=== PATIENT | male | born 1940 | race Caucasian/White ===

== ENCOUNTER 2018-05-09 02:31 | Emergency (ER) | payer MEDICARE, SELFPAY ==
[2018-05-09] VITALS (12 sets, daily range): BP systolic 106–120; BP diastolic 64–87; PULSE 97–110; RESP 15–20; TEMP 36.7; O2SAT 98–100; BMI 19.5
[2018-05-09 02:45] LABS: Bedside Glucose 146 mg/dL (70-110)
--- NOTE | 2018-05-09 02:48 | EKG12_ITS ---
Test Reason : ALT LOC Blood Pressure : / mmHG Vent. Rate : 105 BPM Atrial Rate : 105 BPM P-R Int : 240 ms QRS Dur : 102 ms QT Int : 356 ms P-R-T Axes : 081 014 110 degrees QTc Int : 470 ms Sinus tachycardia with 1st degree A-V block Possible Left atrial enlargement ST & T wave abnormality, consider lateral ischemia Abnormal ECG Confirmed by SANDRO CHANEL, KELSI ([id number]), purchasing expeditor GREYSON REGALADO ([id number]) on 05/12/2018 1:50:58 PM Referred By: MARJORIE Confirmed By:KELSI JO MD
--- NOTE | 2018-05-09 02:48 | CT_ITS ---
STUDY: CT BRAIN WITHOUT CONTRAST REASON FOR EXAM: Male, 77 years old. Altered mental status RADIATION DOSAGE (If Supplied By Facility): CTDIvol = ( 20.80 ) mGy, DLP = ( 360.87 ) mGycm TECHNIQUE: Transaxial CT imaging of the brain was performed without administration of intravenous contrast material. Individualized dose optimization techniques were used for this CT. COMPARISON: No relevant priors. FINDINGS: Normal soft tissue structures. Normal calvarium. There is moderate cerebral atrophy with widening of the extra-axial spaces and ventricular dilatation. There are areas of decreased attenuation within the white matter tracts of the supratentorial brain, consistent with microvascular disease changes. Encephalomalacia bilateral frontal lobes. Valuations the posterior fossa is limited by artifact. There is dilatation of a segment of the body of the right lateral ventricle. Encephalomalacia within the right high parietal convexity. There is no intracranial hemorrhage. There are no findings of an acute territorial ischemic infarction. Paranasal sinus disease. Left maxillary sinus mucus retention cyst versus polyp. Carotid and vertebral artery calcifications. CT/Brain/Head without Contrast IMPRESSION: Evaluation of posterior fossa is limited by artifact. Chronic involutional and white matter changes present. Evidence of prior infarcts. No acute territorial infarct identified. No intracranial hemorrhage is seen. If patient's symptomology persists or there is continuing clinical concern MRI or follow-up CT scan can be performed. Electronically Signed: Franklyn Nicholas, at 4:20 EDT Tel , Service support ,
--- NOTE | 2018-05-09 02:55 | ED.DCSUM_ITS ---
- ER Visit Summary Date of Service: 05/09/18 Chief Complaint: Altered mental status History of Present Illness: The patient is a 77 M who presents as a possible stroke. He was last seen normal at about 9 PM by his . He had gotten up to go to the bathroom and did not come back so she went to check on him. He was found sitting on the commode with his pants pulled part of the way back up but would not respond any questions and has been nonverbal. EMS was called and noted right facial droop. denies any recent illness such as fevers complaining of pain vomiting diarrhea difficulty breathing. She does note that he has been noncompliant with his medications. He has a history of coronary dis ease, prior MA, paroxysmal atrial flutter, diabetes, hypertension, hyperlipidemia. He is not on any anticoagulation. Physical Examination: Afebrile vitals normal No distress Patient alert with eyes open and will follow some commands after repeated questioning he nods to some questions such as if his name is Mr. Lundberg he nods yes Heart regular rate Lungs are clear Abdomen soft No evidence of trauma I do not see lacerations contusions abrasions hematomas NIH stroke scale is 10, although difficult to accurately obtain as he is nonverbal and does not cooperate with all request actions LOC = 1 Questions = 2 Tasks = 1 (squeezes hand, would not close eyes) Facial palsy = 1 (asymmetry of nasolabial fold) Language/aphasia = 3 (mute) Dysrthria = 2 (mute) Patient does not appear to have any weakness. Although he would not hold his arms or legs up for the requested count when his limbs are pulled away is good strength and does not appear to have any focal weakness. Test Results: The mid rate of 105. There is ST depression and T wave inversions in V4 through V6. Chest x-ray shows findings consistent with COPD no acute findings. Labs notable for urinalysis with 500 leukocyte esterase, 50-100 WBCs. Labs otherwise essentially unremarkable including coagulation studies. CT the head shows chronic changes no acute infarct no intra-cranial hemorrhage. There is evidence of old infarcts. CTAs of the head and neck were obtained which show near complete occlusion of the proximal left ICA with only a very small amount of contrast. Thrombus is seen in the mid ICA. 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 There is occlusion of the proximal A2 segment of the left MCA. There is nonvisualization of left A1 segment. Emergency Department Course and Treatment: Patient was evaluated as above. On reevaluation his symptoms have improved. He is following commands much better. He is answering some questions. His repeat NIH is 8. He does appear to have more clearly expressive aphasia. He stated that he was 59 but when attempting to name objects such as a pen or a glove he has obvious difficulty. I did speak to neurology on-call Dr. Miller recommended transfer to a facility with interventional radiology. During his workup here he was also found to have UTI with 500 leukocyte esterase, 50-100 WBCs. He was treated with IV Rocephin for this. Treatment Plan: [] Disposition: Transfer Impression: Stroke UTI This note was generated with [employer] dictation software. It may contain incorrect words, spelling, and punctuation that were not noted in review of the chart prior to signing ED Disposition - Plan for ED Patient: Referrals: Tao Mcgee MD [Primary Care Provider] -
--- NOTE | 2018-05-09 03:05 | RAD_ITS ---
STUDY: X-RAY CHEST REASON FOR EXAM: Male, 77 years old. Altered mental status. TECHNIQUE: Single AP portable view of the chest. COMPARISON: August 05, 2016. FINDINGS: Cardiac monitoring leads are present. There is hyperinflation of the lungs consistent with chronic obstructive lung disease (COPD). Appears to be calcified bilateral apical pleural thickening. There is borderline cardiomegaly. Normal mediastinum and johnny. There is prominence of the pulmonary hilar arteries without peripheral pulmonary vascular congestion, suggesting pulmonary hypertension. There is atherosclerotic tortuosity of the aortic arch and descending thoracic aorta. There is demineralization of the osseous structures. There are degenerative changes of both shoulders. There is no demonstrated abnormality of the visualized soft tissue structures of the upper abdomen. RAD/Chest 1 View IMPRESSION: COPD, borderline cardiomegaly without evidence of acute cardiopulmonary disease. Electronically Signed: Olinda Durbin MD at 4:15 EDT , Service support ,
[2018-05-09 03:12] LABS: Absolute Lymphocyte Count 1.94 X10^3/ul (0.83-4.51); Absolute Neutrophil Count 5.8 X10^3/uL (2.0-7.7); Basophil# 0.06 X10^3/uL; Basophil% 0.7 % (0-1); Eosinophils% 3.4 % (0-5); Hematocrit 37.3 % (40-54); Hemoglobin 12.7 g/dl (13.0-16.5); Lymphocyte # 1.94 X10^3/ul (4.0); Lymphocyte % 21.9 % (19-41); Mean Corpuscular Hgb 31.3 pg (27.0-32.0); Mean Corpuscular Volume 91.9 fL (80-94); Mean Platelet Vol. 9.7 fl (6.2-12.0); Monocyte# 0.72 X10^3/uL; Monocyte% 8.1 % (0-10); Neutrophil # 5.84 X10^3/uL (2.7-7.7); Neutrophil % 65.8 % (47-70); Platelet Count 188 K/mm3 (150-450); RBC Distribution Width CV 12.9 % (11.6-14.6); RBC Distribution Width SD 42.8 fl (35.1-43.9); Red Blood Count 4.06 M/mm3 (4.6-6.2); White Blood Count 8.9 K/mm3 (4.4-11.0)
[2018-05-09 03:13] LABS: Anion Gap 7 (5-15); BUN 20 mg/dL (7-18); BUN/Creat Ratio 18.5 RATIO (10-20); Calcium,Total 8.5 mg/dL (8.5-10.1); Chloride 105 mmol/L (98-107); Creatinine, Serum 1.08 mg/dL (0.70-1.30); EST Glomerular Filtration Rate 71 mL/min (>60); Est Glom Filt Rate - Afr Amer 85 mL/min (>60); Estimated Creatinine Clearance 47.98 ml/min; Glucose 148 mg/dL (74-106); Potassium 4.1 mmol/L (3.5-5.1); Sodium Level 136 mmol/L (136-145)
[2018-05-09 03:14] LABS: International Normalized Ratio 1.1; Prothrombin Time (Protime)PT. 14.3 SECONDS (11.7-14.9)
[2018-05-09 03:15] LABS: POSITIVE COUNT NO; POSITIVE DIFFERENTIAL NO; POSITIVE MORPHOLOGY NO
[2018-05-09 03:15] LABS: Partial Thromboplast Time 27.9 Seconds (24.1-36.2)
--- NOTE | 2018-05-09 04:23 | CT_ITS ---
We are attempting to reach Amilcar Danielle MD to discuss findings. An addendum with communication details will be sent when the communication is complete. STUDY: CTA NECK WITH CONTRAST REASON FOR EXAM: Male, 77 years old. Altered mental status RADIATION DOSAGE (If Supplied By Facility): CTDIvol = ( 8.46 ) mGy, DLP = ( 559.03 ) mGycm TECHNIQUE: CT angiography with multi-detector data acquisition was performed from the aortic arch to the skull base following intravenous administration of 100ML IV Isovue 370. MIP images were reconstructed from the axial data set. Post-processing of the angiographic images was performed, with multiplanar reformation and 3D reconstruction. Individualized dose optimization techniques were used for this CT. COMPARISON: None. FINDINGS: AORTIC ARCH: There is atherosclerotic calcific plaque formation of the aortic arch and great vessels arising from the aortic arch, without a hemodynamically significant stenosis. There is a bovine origin of the great vessels with a common origin of the brachiocephalic and left common carotid artery. Normal origin of the left subclavian artery. RIGHT CAROTID ARTERIES: There is atherosclerotic plaque formation of the common carotid artery, with less than 50% stenosis. There is mild atherosclerotic plaque formation with minimal narrowing of the right carotid bulb. There is mild atherosclerotic plaque formation of the origin of the right internal carotid artery with less than 50% cross sectional diameter stenosis. Evidence of prior endarterectomy. Normal origin of the right external carotid artery (ECA). LEFT CAROTID ARTERIES: There is atherosclerotic plaque formation of the common carotid artery, but without a hemodynamically significant stenosis. There is moderate atherosclerotic plaque formation with moderate narrowing of the carotid bulb. 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 Tiny focus of contrast is seen. There is thrombus extending into the mid left internal carotid artery. There is severe narrowing of the entire left internal carotid artery. There is occlusion of the petrous and cavernous left internal carotid arteries. Please see dedicated CT angiogram of the brain. Normal origin of the left external carotid artery (ECA). VERTEBRAL ARTERIES: Normal bilateral vertebral arteries. 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 Tiny focus of contrast is seen. There is thrombus extending into the mid left internal carotid artery. There is severe narrowing of the entire left internal carotid artery. No prior studies available for comparison. There is occlusion of the petrous and cavernous left internal carotid arteries. Please see dedicated CT angiogram of the brain. Right internal carotid artery less than 50% stenosis. Electronically Signed: Franklyn Nicholas, at 5:53 EDT Tel , Service support ,
--- NOTE | 2018-05-09 04:23 | CT_ITS ---
We are attempting to reach Amilcar Danielle MD to discuss findings. An addendum with communication details will be sent when the communication is complete. STUDY: CTA OF THE BRAIN REASON FOR EXAM: Male, 77 years old. Altered mental status RADIATION DOSAGE (If Supplied By Facility): CTDIvol = ( 8.46 ) mGy, DLP = ( 559.03 ) mGycm TECHNIQUE: CT angiography was performed with a multi-detector CT scanner. Data acquisition was obtained from the skull base through the vertex following intravenous administration of 100ML IV Isovue 370. MIP images were reconstructed from the axial data set. Post-processing of the angiographic images was performed, with multiplanar reformation and 3D reconstruction. Individualized dose optimization techniques were used for this CT. COMPARISON: CT brain same day. FINDINGS: There is occlusion of the left petrous carotid artery. There is calcified plaque formation of the right cavernous carotid artery, without a cross-sectional luminal stenosis. There is occlusion of the left cavernous carotid artery. Normal right A1 segments of the anterior cerebral artery. There is non-visualization of the left A1 segment of the anterior cerebral arteries consistent with either aplastic development or an occlusion. There is non-visualization of the anterior communicating artery (ACOM). There is a single anterior proximal cerebral artery which bifurcates as it gets more distal. Normal right M1 and M2 segments of the middle cerebral arteries, with a normal M1 bifurcation. Just distal to the bifurcation of the M1 and the left there is occlusion of one of the A2 branches. The middle cerebral artery M1 branch is well opacified as are the remaining aspects of the M2 branches and M3 branches of the left territory. Likely due to reconstitution from collateralization from the [place]. Possibly from the posterior cerebral artery. Normal right posterior communicating artery (PCOM). Normal left posterior communicating artery (PCOM). Normal bilateral vertebral arteries. Normal basilar artery with a normal basilar bifurcation. The visualized bilateral superior cerebellar (SCA) arteries are normal. Normal bilateral P1, P2 and visualized P3 segments of the posterior cerebral arteries. There is no demonstrated aneurysm of the [place]. CT/CTA Head W/WO Contrast IMPRESSION: There is occlusion of the visualized aspects of the left internal carotid artery. There is reconstitution of the left middle cerebral artery. There is occlusion of proximal A2 branch of the left MCA. There is nonvisualization of the left A1 branch of the anterior cerebral artery. Consider MRI to further evaluate. No prior studies are available for comparison. Electronically Signed: Franklyn Nicholas, at 5:53 EDT Tel , Service support ,
[2018-05-09 04:56] LABS: AST(SGOT) 11 U/L (15-37); Alanine Aminotransfer ALT/SGPT 12 U/L (16-61); Albumin, Serum 3.1 g/dL (3.2-5.0); Alkaline Phosphatase 102 U/L (45-117); Bilirubin, Direct 0.12 mg/dL (0.00-0.30); Protein, Total 7.1 g/dL (6.4-8.2)
[2018-05-09 05:10] LABS: Bacteria 0 SEEN /hpf (None Seen); Mucous, Urine 0 SEEN /hpf (<or=2+); Squamous Epithelial Cells - UA 0 SEEN /hpf (0-5)
[2018-05-09 05:15] LABS: Color, Urine Yellow (Yellow); Glucose, Dipstick Normal (Normal); Ketone-Dipstick Negative (Negative); Leukocyte Esterase-Dipstick 500 /ul (Negative); Nitrite-Dipstick Negative (Negative); Occult Blood-Urine 150 /ul (Negative); Protein-Dipstick 30 mg/dl (Negative); Specific Gravity, Urine 1.015 (1.002-1.030); Urine Bilirubin Dipstick Negative (Negative); Urine Clarity Cloudy (Clear); Urine Urobilinogen Normal (Normal)
[2018-05-09 05:24] LABS: White Blood Cells 50-100 SEEN /hpf (0-5)
[2018-05-09 05:25] LABS: Amorphous Sediment 2+; Red Blood Cells-Urine 5-10 SEEN /hpf (0-5)
[2018-05-09] MEDS: Ceftriaxone 1 GM/50 ML BAG IV (05:43)
--- NOTE | 2018-05-09 07:07 | ED.RN ---
CALLED FOR TRANSPORT; [facility] GAVE US AN ETA OF 0900. I ACCEPTED CALLED TO SEE IF [facility] COULD TRANSPORT EARLIER AND THEY SAID THAT WERE BOOKED UNTIL EARLY AFTERNOON THEY ARE VERY SHORT TODAY CALLED THE [place] RECOMMENDATION FROM [facility] AND SHE STATED THAT THEY HAD NO AVAILABILITY AT THIS TIME REPORTED TO DR RIVERA AND TO CHARGE NURSE TARA THAT TRANSPORT WOULD NOT BE HERE UNTIL 0900 THIS AM
== END 2018-05-09 08:43 | disposition short-term general hospital (02) ==
PROVIDERS: Emergency Provider Emergency Medicine; Family Provider Internal Medicine; PCP Internal Medicine
DX: I63.9 Cerebral infarction, unspecified (principal); N39.0 Urinary tract infection, site not specified; I25.10 Atherosclerotic heart disease of native coronary artery without angina pectoris; I25.2 Old myocardial infarction; I10 Essential (primary) hypertension; E11.9 Type 2 diabetes mellitus without complications; J44.9 Chronic obstructive pulmonary disease, unspecified; Z91.14 Patient's other noncompliance with medication regimen
CPT/HCPCS: 70450; 70496; 70498; 71045; 80048; 80076; 81001; 82962; 84484; 85025; 85610; 85730; 93005; 96365; 99285; J7030; J7050; P9612; Q9967; A4216